=== PATIENT | male | born 1940 | race Caucasian/White ===

== ENCOUNTER 2016-03-17 15:11 | Emergency (ER) | payer OTHER ==
[2016-03-17] VITALS (8 sets, daily range): BP systolic 153–174; BP diastolic 78–96
[~2016-03-17] VITALS: Ht 162.6 cm; Wt 60.6 kg
[~2016-03-17 15:11] MED LIST: LEVAQUIN750 MG PO; MIRTAZAPINE15 MG PO; TYLENOL PM1 CAPLET PO
[2016-03-17 16:17] LABS: HEMATOCRIT 47.1 % (38.0-50.0); MCH 30.5 PG (29.0-34.0); MCHC 33.1 G/DL (30.0-36.0); MCV 92.2 FL (86-99); MEAN PLAT.VOLUME 9.5 uM^3 (9.0-12.4); PLATELET COUNT 197 K/uL (156-360); RBC DIS.WIDTH-CV 14.3 % (11.8-14.6); RBC DIS.WIDTH-SD 46.3 % (39-53); RED BLOOD COUNT 5.11 M/uL (4.00-5.50); WHITE BLOOD COUNT 5.3 K/uL (4.1-10.2)
[2016-03-17 16:28] LABS: CHLORIDE 106 mEq/L (99-109)
[2016-03-17 16:29] LABS: POTASSIUM 4.3 mEq/L (3.7-5.4); SODIUM 141 mEq/L (136-147)
[2016-03-17 16:30] LABS: GLUCOSE 81 mg/dL (70-99)
[2016-03-17 16:32] LABS: ANION GAP 9 MEQ/L (2-14)
[2016-03-17 16:34] LABS: GFR ESTIMATE (CALCULATED) > 59 mL/min/
[2016-03-17 16:35] LABS: UREA NITROGEN (BUN) 26 mg/dL (9-23)
[2016-03-17 16:38] LABS: TROP-I INTERPRETATION NEGATIVE; TROPONIN-I < 0.01 ng/mL (0.0-0.30)
[2016-03-17 18:31] LABS: ADD MIUA? NO; BILIRUBIN NEGATIVE; BLOOD NEGATIVE; COLOR YELLOW ((YELLOW)); GLUCOSE (STRIP) NEGATIVE; KETONES NEGATIVE; LEUKOCYTES NEGATIVE; NITRITE NEGATIVE; PROTEIN (STRIP) NEGATIVE; SPECIFIC GRAVITY 1.025 (1.000-1.030); UCUL ADDED? NO; UROBILINOGEN 0.2 MG/DL (0.2-1.0)
[2016-03-17] MEDS ORDERED: DOXYCYCLINE HY100 MG PO (18:48)
== END 2016-03-17 19:20 | disposition home or self-care (01) ==
LOC: EME 15:11
PROVIDERS: Emergency Medicine
DX: J40 Bronchitis, not specified as acute or chronic (principal); R44.1 Visual hallucinations; R10.9 Unspecified abdominal pain; Z87.891 Personal history of nicotine dependence
CPT/HCPCS: 71020; 80048; 81003; 84484; 85027; 93005; 99281; 99285; J7030

== ENCOUNTER 2016-06-10 17:31 | Inpatient (IN) | payer OTHER ==
[~2016-06-10] VITALS: Ht 172.7 cm; Wt 65.7 kg
[~2016-06-10 17:31] MED LIST changes: +DOXYCYCLINE HY100 MG PO
[2016-06-10 18:21] LABS: HEMATOCRIT 46.3 % (38.0-50.0); MCH 30.9 PG (29.0-34.0); MCV 93.5 FL (86-99); MEAN PLAT.VOLUME 9.2 uM^3 (9.0-12.4); PLATELET COUNT 261 K/uL (156-360); RBC DIS.WIDTH-CV 13.8 % (11.8-14.6); RBC DIS.WIDTH-SD 47.6 % (39-53); RED BLOOD COUNT 4.95 M/uL (4.00-5.50); WHITE BLOOD COUNT 3.6 K/uL (4.1-10.2)
[2016-06-10 18:31] LABS: CHLORIDE 107 mEq/L (99-109); POTASSIUM 4.6 mEq/L (3.7-5.4); SODIUM 138 mEq/L (136-147)
[2016-06-10 18:33] LABS: GLUCOSE 95 mg/dL (70-99)
[2016-06-10 18:34] LABS: ANION GAP 10 MEQ/L (2-14)
[2016-06-10 18:37] LABS: GFR ESTIMATE (CALCULATED) > 59 mL/min/; UREA NITROGEN (BUN) 20 mg/dL (9-23)
[2016-06-10] MEDS ORDERED: NAPROXEN500 MG PO (18:39)
[2016-06-10 18:43] LABS: TROP-I INTERPRETATION NEGATIVE; TROPONIN-I 0.01 ng/mL (0.0-0.30)
[2016-06-10] MEDS ORDERED: CILOSTAZOL50 MG PO (23:35)
[2016-06-10] MEDS ORDERED: MIRTAZAPINE30 MG PO (23:38)
[2016-06-10] MEDS ORDERED: SERTRALINE HCL25 MG PO (23:40)
[2016-06-10] MEDS ORDERED: BREO ELLIPTA I1 EACH IH (23:41)
[2016-06-10] MEDS ORDERED: VITAMIN D22000 UNIT PO (23:41)
[2016-06-10] MEDS ORDERED: BACTRIM,SEPT1 TABLET PO (23:42)
[2016-06-10] MEDS ORDERED: KENALOG,ARISTOC15 GM TP (23:42)
[2016-06-10] MEDS ORDERED: OMEPRAZOLE20 MG PO (23:43)
[2016-06-10] MEDS ORDERED: ADVAIR 250/501 DISK IH (23:43)
[2016-06-10] MEDS ORDERED: PROVENTIL,2.5 MG/3 M IH (23:44)
[2016-06-10] MEDS ORDERED: LEVO-T25 MCG PO (23:44)
[2016-06-11 11:47] VITALS: BP 166/77
[2016-06-11 15:26] VITALS: BP 121/60
[2016-06-11] MEDS ORDERED: MIRTAZAPINE30 MG PO (18:17)
[2016-06-11] MEDS ORDERED: ADVAIR 250/501 DISK IH (18:21)
[2016-06-11] MEDS ORDERED: BACTRIM,SEPT1 TABLET PO (18:24)
[2016-06-11] MEDS ORDERED: KENALOG,ARISTOC15 GM TP (18:25)
[2016-06-11] MEDS ORDERED: SERTRALINE HCL25 MG PO (18:26)
[2016-06-11] MEDS ORDERED: INCRUSE ELLI62.5 MCG IH (18:26)
[2016-06-11] MEDS ORDERED: BREO ELLIPTA I1 EACH IH (18:26)
[2016-06-11 19:47] VITALS: BP 141/63
[2016-06-11 23:44] VITALS: BP 135/63
[2016-06-12 03:20] VITALS: BP 123/62
[2016-06-12 03:45] VITALS: BP 168/79
[2016-06-12 05:44] LABS: HEMATOCRIT 40.9 % (38.0-50.0); MEAN PLAT.VOLUME 9.6 uM^3 (9.0-12.4); PLATELET COUNT 250 K/uL (156-360); RBC DIS.WIDTH-CV 13.9 % (11.8-14.6); RBC DIS.WIDTH-SD 48.5 % (39-53); RED BLOOD COUNT 4.35 M/uL (4.00-5.50)
[2016-06-12 05:49] LABS: WHITE BLOOD COUNT 9.8 K/uL (4.1-10.2)
[2016-06-12 06:02] LABS: ANION GAP 9 MEQ/L (2-14); CHLORIDE 103 MEQ/L (99-109); GFR ESTIMATE (CALCULATED) > 59 mL/min/; SAMPLE HEMOLYSIS CHECK 0; SAMPLE ICTERIC CHECK 0; SAMPLE LIPEMIA CHECK 0; SODIUM 136 MEQ/L (136-147); UREA NITROGEN (BUN) 26 mg/dL (9-23)
[2016-06-12 06:05] LABS: GLUCOSE 119 mg/dL (70-99)
[2016-06-12 09:35] VITALS: BP 131/62
[2016-06-12 19:50] VITALS: BP 143/67
[2016-06-12 23:26] VITALS: BP 127/64
[2016-06-13 02:56] VITALS: BP 139/70
[2016-06-13 09:00] VITALS: BP 122/63
[2016-06-13] MEDS ORDERED: PREDNISONE10 MG PO (13:49)
[2016-06-13] MEDS ORDERED: AUGMENTIN500 MG PO (13:49)
[2016-06-13 17:00] VITALS: BP 158/82
[2016-06-13 20:27] VITALS: BP 138/75
[2016-06-13 23:42] VITALS: BP 153/79
[2016-06-14 03:43] VITALS: BP 114/59
[2016-06-14 05:03] LABS: HEMATOCRIT 43.4 % (38.0-50.0); MCH 30.6 PG (29.0-34.0); MCHC 32.3 G/DL (30.0-36.0); MEAN PLAT.VOLUME 9.3 uM^3 (9.0-12.4); PLATELET COUNT 275 K/uL (156-360); RBC DIS.WIDTH-CV 13.9 % (11.8-14.6); RBC DIS.WIDTH-SD 48.6 % (39-53); RED BLOOD COUNT 4.57 M/uL (4.00-5.50)
[2016-06-14 05:04] LABS: WHITE BLOOD COUNT 6.6 K/uL (4.1-10.2)
[2016-06-14 05:18] LABS: CHLORIDE 104 mEq/L (99-109); POTASSIUM 4.6 mEq/L (3.7-5.4); SODIUM 137 mEq/L (136-147)
[2016-06-14 05:20] LABS: GLUCOSE 118 mg/dL (70-99)
[2016-06-14 05:21] LABS: ANION GAP 6 MEQ/L (2-14)
[2016-06-14 05:24] LABS: GFR ESTIMATE (CALCULATED) > 59 mL/min/; UREA NITROGEN (BUN) 22 mg/dL (9-23)
[2016-06-14 07:13] VITALS: BP 128/76
[2016-06-14 11:25] VITALS: BP 166/86
[2016-06-14 15:53] VITALS: BP 167/71
[2016-06-14 19:38] VITALS: BP 148/72
[2016-06-15 00:02] VITALS: BP 145/72
[2016-06-15 03:39] VITALS: BP 143/80
[2016-06-15 07:59] VITALS: BP 148/72
[2016-06-15 12:05] VITALS: BP 160/77
[2016-06-15 16:30] VITALS: BP 125/62
[2016-06-15 20:49] VITALS: BP 142/71
[2016-06-16 00:05] VITALS: BP 110/57
[2016-06-16 04:25] VITALS: BP 110/55
[2016-06-16 08:01] VITALS: BP 139/75
[2016-06-16] MEDS ORDERED: LEVOFLOXACIN750 MG PO (13:29)
[2016-06-16 15:40] VITALS: BP 157/79
== END 2016-06-16 19:00 | DRG 190 ==
LOC: EME 17:31 → EXP 17:31 → EDOF 06-11 01:38 → 3EAST 06-11 01:38
PROVIDERS: Hospitalist; Physician Assistant
DX: J44.0 Chronic obstructive pulmonary disease with (acute) lower respiratory infection (principal); J18.9 Pneumonia, unspecified organism; J96.11 Chronic respiratory failure with hypoxia; R91.1 Solitary pulmonary nodule; I87.2 Venous insufficiency (chronic) (peripheral); I87.8 Other specified disorders of veins; M19.90 Unspecified osteoarthritis, unspecified site; Z99.81 Dependence on supplemental oxygen; Z87.891 Personal history of nicotine dependence
CPT/HCPCS: 71010; 71020; 71275; 80048; 83605; 84484; 85027; 87040; 87070; 87205; 93005; 94640; 94640 76; 94799; 99202; 99281; 99285; J0456; J0696; J1644; J2930; J7030; J7050; J7512

== ENCOUNTER 2016-10-21 16:10 | Inpatient (IN) | payer OTHER ==
[~2016-10-21] VITALS: Ht 160 cm; Wt 67.3 kg
[~2016-10-21 16:10] MED LIST changes: +ADVAIR 250/501 DISK IH; +AUGMENTIN500 MG PO; +BACTRIM,SEPT1 TABLET PO; +BREO ELLIPTA I1 EACH IH; +CILOSTAZOL50 MG PO; +INCRUSE ELLI62.5 MCG IH; +KENALOG,ARISTOC15 GM TP; +LEVO-T25 MCG PO; +LEVOFLOXACIN750 MG PO; +MIRTAZAPINE30 MG PO; +NAPROXEN500 MG PO; +OMEPRAZOLE20 MG PO; +PREDNISONE10 MG PO; +PROVENTIL,2.5 MG/3 M IH; +SERTRALINE HCL25 MG PO; +VITAMIN D31000 UNIT PO
[2016-10-21 16:54] LABS: BASE EXCESS 2.8 mEq/L (-3 to +3); CARBOXY HGB 2.3 % (0-5); METHEMOGLOBIN 1.2 % (0-1.5); PCO2 49 mm Hg (35-45); PO2 54 mm Hg (80-100); pH 7.38 (7.35-7.45)
[2016-10-21 16:55] LABS: COMMENTS - BLOOD GASES A+C+; DEVICE NC; O2 FLOW 3 L/MIN; SITE RR
[2016-10-21 17:07] LABS: EOSINOPHIL (%) 4.1 % (0-5); EOSINOPHIL COUNT 0.3 K/uL (0-0.3); HEMATOCRIT 44.3 % (38.0-50.0); IMMATURE GRANULOCYTE (%) 0.3 % (0.0-0.7); INSTRUMENT ABS NEUTROPHIL CT 5.6 K/uL; LYMPHOCYTE COUNT 0.9 K/uL (1.0-2.8); MCH 31.3 PG (29.0-34.0); MCV 95.1 FL (86-99); MONOCYTE (%) 6.6 % (3-12); MONOCYTE COUNT 0.5 K/uL (0-0.8); NEUTROPHIL (%) 76.3 % (45-76); NEUTROPHIL COUNT 5.6 K/uL (1.8-6.4); PLATELET COUNT 174 K/uL (156-360); RBC DIS.WIDTH-CV 12.6 % (11.8-14.6); RBC DIS.WIDTH-SD 44.2 % (39-53); RED BLOOD COUNT 4.66 M/uL (4.00-5.50); WHITE BLOOD COUNT 7.3 K/uL (4.1-10.2)
[2016-10-21 17:15] LABS: CHLORIDE 103 mEq/L (99-109); POTASSIUM 4.1 mEq/L (3.7-5.4); SODIUM 139 mEq/L (136-147)
[2016-10-21 17:17] LABS: GLUCOSE 127 mg/dL (70-99)
[2016-10-21 17:18] LABS: ANION GAP 10 MEQ/L (2-14)
[2016-10-21 17:20] LABS: GFR ESTIMATE (CALCULATED) > 59 mL/min/
[2016-10-21 17:21] LABS: UREA NITROGEN (BUN) 15 mg/dL (9-23)
[2016-10-21 17:27] LABS: TROP-I INTERPRETATION NEGATIVE; TROPONIN-I 0.01 ng/mL (0.0-0.30)
[2016-10-21] MEDS ORDERED: AMLODIPINE BESY10 MG PO (20:09)
[2016-10-21] MEDS ORDERED: LOPERAMIDE2 MG PO (20:09)
[2016-10-21] MEDS ORDERED: SENNA8.6 MG PO (20:09)
[2016-10-21 23:15] VITALS: BP 101/51
[2016-10-22 04:48] VITALS: BP 116/55
[2016-10-22 07:46] VITALS: BP 105/56
[2016-10-22 12:29] VITALS: BP 118/62
[2016-10-22 17:28] VITALS: BP 151/70
[2016-10-22 19:22] VITALS: BP 119/58
[2016-10-23] VITALS (7 sets, daily range): BP systolic 111–138; BP diastolic 54–71
[2016-10-24 07:10] VITALS: BP 128/71
[2016-10-24 10:51] VITALS: BP 112/54
[2016-10-24] MEDS ORDERED: PREDNISONE10 MG PO (14:00)
[2016-10-24] MEDS ORDERED: CEFDINIR300 MG PO (14:00)
[2016-10-24 15:59] VITALS: BP 136/65
[2016-10-24 18:13] VITALS: BP 151/72
== END 2016-10-24 19:15 | disposition home health service (06) | DRG 190 ==
LOC: EME 16:10 → EDOF 19:25 → 5EAST 19:25 → ENRESERV 19:33 → 5EAST 20:48
PROVIDERS: Emergency Medicine
DX: J44.0 Chronic obstructive pulmonary disease with (acute) lower respiratory infection (principal); J18.0 Bronchopneumonia, unspecified organism; F33.9 Major depressive disorder, recurrent, unspecified; E03.9 Hypothyroidism, unspecified; J98.4 Other disorders of lung; I10 Essential (primary) hypertension; I73.9 Peripheral vascular disease, unspecified; J44.1 Chronic obstructive pulmonary disease with (acute) exacerbation; M19.90 Unspecified osteoarthritis, unspecified site; R09.02 Hypoxemia; Z99.81 Dependence on supplemental oxygen; Z87.891 Personal history of nicotine dependence
CPT/HCPCS: 36600; 71010; 80048; 82803; 84484; 85025; 94640; 94640 76; 94799; 99202; 99281; 99284; J0456; J0696; J1100; J1644; J2930; J7050; J7512; J7644

== ENCOUNTER 2016-11-15 16:01 | Inpatient (IN) | payer OTHER ==
[~2016-11-15] VITALS: Ht 172.7 cm; Wt 67.0 kg
[~2016-11-15 16:01] MED LIST changes: +AMLODIPINE BESY10 MG PO; +CEFDINIR300 MG PO; +LOPERAMIDE2 MG PO; +SENNA8.6 MG PO
[2016-11-15 17:09] LABS: HEMATOCRIT 42.3 % (38.0-50.0); MCH 30.9 PG (29.0-34.0); MCHC 33.6 G/DL (30.0-36.0); MCV 92.2 FL (86-99); PLATELET COUNT 214 K/uL (156-360); RBC DIS.WIDTH-CV 12.4 % (11.8-14.6); RBC DIS.WIDTH-SD 42.3 % (39-53); RED BLOOD COUNT 4.59 M/uL (4.00-5.50)
[2016-11-15 17:32] LABS: ANION GAP 12 MEQ/L (2-14); CHLORIDE 104 MEQ/L (99-109); POTASSIUM 4.2 MEQ/L (3.7-5.4); SAMPLE HEMOLYSIS CHECK 0; SAMPLE ICTERIC CHECK 0; SAMPLE LIPEMIA CHECK 0; SODIUM 140 MEQ/L (136-147)
[2016-11-15 17:38] LABS: GFR ESTIMATE (CALCULATED) > 59 mL/min/; GLUCOSE 86 mg/dL (70-99); UREA NITROGEN (BUN) 28 mg/dL (9-23)
[2016-11-15 18:32] LABS: TROP-I INTERPRETATION NEGATIVE; TROPONIN-I 0.07 ng/mL (0.0-0.30)
[2016-11-15 20:25] LABS: BASE EXCESS -0.6 mEq/L (-3 to +3); BICARBONATE 23.2 mEq/L (22-26); CARBOXY HGB 2.4 % (0-5); COMMENTS - BLOOD GASES A+C+; DEVICE HHFNC; FI02 80 %; METHEMOGLOBIN 1.4 % (0-1.5); O2 FLOW 45 L/MIN; PCO2 35 mm Hg (35-45); PO2 89 mm Hg (80-100); SITE RR; pH 7.43 (7.35-7.45)
[2016-11-15 23:33] VITALS: BP 128/66
[2016-11-16 04:18] VITALS: BP 120/63
[2016-11-16 05:12] LABS: HEMATOCRIT 39.1 % (38.0-50.0); MCH 30.7 PG (29.0-34.0); MCV 93.1 FL (86-99); MEAN PLAT.VOLUME 9.3 uM^3 (9.0-12.4); PLATELET COUNT 210 K/uL (156-360); RBC DIS.WIDTH-CV 12.5 % (11.8-14.6); WHITE BLOOD COUNT 5.1 K/uL (4.1-10.2)
[2016-11-16 05:44] LABS: ANION GAP 11 MEQ/L (2-14); CHLORIDE 106 MEQ/L (99-109); GFR ESTIMATE (CALCULATED) > 59 mL/min/; GLUCOSE 177 mg/dL (70-99); POTASSIUM 4.2 MEQ/L (3.7-5.4); SAMPLE HEMOLYSIS CHECK 0; SAMPLE ICTERIC CHECK 0; SAMPLE LIPEMIA CHECK 0; SODIUM 142 MEQ/L (136-147); UREA NITROGEN (BUN) 29 mg/dL (9-23)
[2016-11-16 06:19] LABS: ADD MIUA? NO; BILIRUBIN NEGATIVE; BLOOD NEGATIVE; COLOR YELLOW ((YELLOW)); GLUCOSE (STRIP) NEGATIVE; KETONES 20; LEUKOCYTES NEGATIVE; NITRITE NEGATIVE; PROTEIN (STRIP) NEGATIVE; SPECIFIC GRAVITY 1.035 (1.000-1.030); UROBILINOGEN 0.2 MG/DL (0.2-1.0)
[2016-11-16 06:32] LABS: UCUL ADDED? NO
[2016-11-16 07:56] VITALS: BP 132/66
[2016-11-16 12:00] VITALS: BP 121/63
[2016-11-16 15:32] VITALS: BP 125/66
[2016-11-16 21:15] VITALS: BP 122/74
[2016-11-17 04:34] VITALS: BP 125/84
[2016-11-17 05:12] LABS: HEMATOCRIT 37.4 % (38.0-50.0); MCH 30.9 PG (29.0-34.0); MCHC 33.4 G/DL (30.0-36.0); MCV 92.6 FL (86-99); MEAN PLAT.VOLUME 9.3 uM^3 (9.0-12.4); PLATELET COUNT 236 K/uL (156-360); RBC DIS.WIDTH-CV 12.8 % (11.8-14.6); RBC DIS.WIDTH-SD 43.3 % (39-53); RED BLOOD COUNT 4.04 M/uL (4.00-5.50); WHITE BLOOD COUNT 7.9 K/uL (4.1-10.2)
[2016-11-17 07:09] LABS: INTERNAL CONTROL VALID? YES
[2016-11-17 08:00] VITALS: BP 121/68
[2016-11-17 11:20] VITALS: BP 108/74; BP 131/71
[2016-11-17 15:51] VITALS: BP 131/73
[2016-11-17 20:45] VITALS: BP 121/62
[2016-11-18 03:12] VITALS: BP 125/74
[2016-11-18 05:28] LABS: HEMATOCRIT 38.4 % (38.0-50.0); MCH 31.8 PG (29.0-34.0); MCHC 33.6 G/DL (30.0-36.0); MCV 94.6 FL (86-99); MEAN PLAT.VOLUME 9.5 uM^3 (9.0-12.4); PLATELET COUNT 251 K/uL (156-360); RED BLOOD COUNT 4.06 M/uL (4.00-5.50); WHITE BLOOD COUNT 7.5 K/uL (4.1-10.2)
[2016-11-18 07:34] VITALS: BP 138/70
[2016-11-18 11:22] VITALS: BP 122/58
[2016-11-18 15:30] VITALS: BP 132/69
[2016-11-18 20:15] VITALS: BP 135/69
[2016-11-18 23:32] VITALS: BP 137/68
[2016-11-19] VITALS (7 sets, daily range): BP systolic 125–166; BP diastolic 60–96
[2016-11-20 00:06] VITALS: BP 135/72
[2016-11-20 04:48] VITALS: BP 143/94
[2016-11-20 08:28] VITALS: BP 139/68
[2016-11-20 11:32] VITALS: BP 141/80
[2016-11-20 15:19] VITALS: BP 119/69
[2016-11-20 20:53] VITALS: BP 118/65
[2016-11-21 00:04] VITALS: BP 143/81
[2016-11-21 05:42] VITALS: BP 145/71
[2016-11-21 08:09] VITALS: BP 138/73
[2016-11-21 14:53] VITALS: BP 137/83
[2016-11-21 20:06] VITALS: BP 126/65
[2016-11-22] VITALS (7 sets, daily range): BP systolic 129–148; BP diastolic 64–80
[2016-11-22 05:08] LABS: HEMATOCRIT 40.4 % (38.0-50.0); MCH 31.6 PG (29.0-34.0); MCHC 33.2 G/DL (30.0-36.0); MCV 95.3 FL (86-99); MEAN PLAT.VOLUME 9.4 uM^3 (9.0-12.4); PLATELET COUNT 296 K/uL (156-360); RBC DIS.WIDTH-CV 13.2 % (11.8-14.6); RBC DIS.WIDTH-SD 46.8 % (39-53); RED BLOOD COUNT 4.24 M/uL (4.00-5.50); WHITE BLOOD COUNT 9.8 K/uL (4.1-10.2)
[2016-11-22 05:40] LABS: ANION GAP 7 MEQ/L (2-14); CHLORIDE 102 MEQ/L (99-109); GFR ESTIMATE (CALCULATED) > 59 mL/min/; GLUCOSE 124 mg/dL (70-99); POTASSIUM 4.9 MEQ/L (3.7-5.4); SAMPLE HEMOLYSIS CHECK 0; SAMPLE ICTERIC CHECK 0; SAMPLE LIPEMIA CHECK 0; SODIUM 141 MEQ/L (136-147); UREA NITROGEN (BUN) 32 mg/dL (9-23)
[2016-11-23 04:58] VITALS: BP 133/62
[2016-11-23 05:35] LABS: HEMATOCRIT 40.5 % (38.0-50.0); MCHC 33.6 G/DL (30.0-36.0); MCV 95.3 FL (86-99); MEAN PLAT.VOLUME 9.4 uM^3 (9.0-12.4); PLATELET COUNT 293 K/uL (156-360); RBC DIS.WIDTH-CV 13.2 % (11.8-14.6); RBC DIS.WIDTH-SD 45.8 % (39-53); RED BLOOD COUNT 4.25 M/uL (4.00-5.50); WHITE BLOOD COUNT 11.6 K/uL (4.1-10.2)
[2016-11-23 06:02] LABS: ANION GAP 8 MEQ/L (2-14); CHLORIDE 99 MEQ/L (99-109); GFR ESTIMATE (CALCULATED) > 59 mL/min/; GLUCOSE 127 mg/dL (70-99); POTASSIUM 4.7 MEQ/L (3.7-5.4); SAMPLE HEMOLYSIS CHECK 0; SAMPLE ICTERIC CHECK 0; SAMPLE LIPEMIA CHECK 0; SODIUM 138 MEQ/L (136-147); UREA NITROGEN (BUN) 31 mg/dL (9-23)
[2016-11-23 07:43] VITALS: BP 141/99
[2016-11-23 11:20] VITALS: BP 134/68
[2016-11-23 15:57] VITALS: BP 134/72
[2016-11-23 20:19] VITALS: BP 156/75
[2016-11-23 23:29] VITALS: BP 143/72
[2016-11-24 03:38] VITALS: BP 110/58
[2016-11-24 05:46] LABS: HEMATOCRIT 41.8 % (38.0-50.0); MCH 30.8 PG (29.0-34.0); MCHC 32.5 G/DL (30.0-36.0); MCV 94.6 FL (86-99); MEAN PLAT.VOLUME 9.5 uM^3 (9.0-12.4); PLATELET COUNT 297 K/uL (156-360); RBC DIS.WIDTH-SD 45.1 % (39-53); RED BLOOD COUNT 4.42 M/uL (4.00-5.50); WHITE BLOOD COUNT 11.8 K/uL (4.1-10.2)
[2016-11-24 06:26] LABS: ANION GAP 7 MEQ/L (2-14); CHLORIDE 100 MEQ/L (99-109); GFR ESTIMATE (CALCULATED) > 59 mL/min/; GLUCOSE 114 mg/dL (70-99); POTASSIUM 4.6 MEQ/L (3.7-5.4); SAMPLE HEMOLYSIS CHECK 0; SAMPLE ICTERIC CHECK 0; SAMPLE LIPEMIA CHECK 0; SODIUM 138 MEQ/L (136-147); UREA NITROGEN (BUN) 32 mg/dL (9-23)
[2016-11-24 07:00] VITALS: BP 123/70
[2016-11-24 07:01] LABS: BAND NEUTROPHILS 0.9 % (0-8.0); EOSINOPHIL ABS CT 0; INSTRUMENT ABS NEUTROPHIL CT 9.3 K/uL; LYMPHOCYTES 2.6 % (15.0-45.0); METAMYELOCYTES 0.9 %; MYELOCYTES 2.6 %; PLAT.SUFFICIENCY ADEQUATE; SEG.NEUTROPHILS 83.5 % (46.0-76.0); SMUDGE CELLS 0.9
[2016-11-24 11:10] VITALS: BP 145/79
[2016-11-24 15:35] VITALS: BP 144/77
[2016-11-24 20:08] VITALS: BP 128/66
[2016-11-25 00:10] VITALS: BP 118/65
[2016-11-25 04:15] VITALS: BP 117/72
[2016-11-25 05:45] LABS: HEMATOCRIT 42.1 % (38.0-50.0); MCH 30.3 PG (29.0-34.0); MCHC 32.1 G/DL (30.0-36.0); MCV 94.6 FL (86-99); MEAN PLAT.VOLUME 9.4 uM^3 (9.0-12.4); PLATELET COUNT 280 K/uL (156-360); RBC DIS.WIDTH-CV 13.1 % (11.8-14.6); RBC DIS.WIDTH-SD 45.5 % (39-53); RED BLOOD COUNT 4.45 M/uL (4.00-5.50); WHITE BLOOD COUNT 10.5 K/uL (4.1-10.2)
[2016-11-25 06:11] LABS: ANION GAP 6 MEQ/L (2-14); CHLORIDE 101 MEQ/L (99-109); GFR ESTIMATE (CALCULATED) > 59 mL/min/; GLUCOSE 86 mg/dL (70-99); POTASSIUM 4.4 MEQ/L (3.7-5.4); SAMPLE HEMOLYSIS CHECK 0; SAMPLE ICTERIC CHECK 0; SAMPLE LIPEMIA CHECK 0; SODIUM 139 MEQ/L (136-147); UREA NITROGEN (BUN) 29 mg/dL (9-23)
[2016-11-25 06:19] LABS: ABS NEUTROPHIL COUNT 7.4; ATYPICAL LYMPHOCYTE 0.9 %; BAND NEUTROPHILS 3.5 % (0-8.0); EOSINOPHIL ABS CT 0; INSTRUMENT ABS NEUTROPHIL CT 6.8 K/uL; LYMPHOCYTES 11.2 % (15.0-45.0); METAMYELOCYTES 3.4 %; MYELOCYTES 6.9 %; PLAT.SUFFICIENCY ADEQUATE; SEG.NEUTROPHILS 67.2 % (46.0-76.0)
[2016-11-25 08:55] VITALS: BP 126/67
[2016-11-25 11:16] VITALS: BP 145/75
[2016-11-25] MEDS ORDERED: ATIVAN0.5 MG PO (13:42)
[2016-11-25] MEDS ORDERED: MORPHINE CON20 MG/M1 PO (13:42)
[2016-11-25] MEDS ORDERED: BISACODYL5 MG PO (13:43)
[2016-11-25] MEDS ORDERED: GUAIFENESI100 MG/5 M PO (13:43)
[2016-11-25] MEDS ORDERED: PREDNISONE20 MG PO (13:43)
[2016-11-25] MEDS ORDERED: MUCINEX600 MG PO (13:43)
[2016-11-25] MEDS ORDERED: DOCUSATE SODIU100 MG PO (13:43)
[2016-11-25] MEDS ORDERED: CEFDINIR300 MG PO (13:43)
== END 2016-11-25 16:00 | disposition hospice, home (50) | DRG 189 ==
LOC: EME 16:01 → 4EAST 21:02 → EDOF 21:02 → ENRESERV 21:05 → 4EAST 23:22
PROVIDERS: Emergency Medicine; Hospitalist; Internal Medicine
DX: J96.21 Acute and chronic respiratory failure with hypoxia (principal); J18.9 Pneumonia, unspecified organism; J44.1 Chronic obstructive pulmonary disease with (acute) exacerbation; S22.089A Unspecified fracture of T11-T12 vertebra, initial encounter for closed fracture; L97.919 Non-pressure chronic ulcer of unspecified part of right lower leg with unspecified severity; J98.11 Atelectasis; L97.929 Non-pressure chronic ulcer of unspecified part of left lower leg with unspecified severity; J44.0 Chronic obstructive pulmonary disease with (acute) lower respiratory infection; M48.54XA Collapsed vertebra, not elsewhere classified, thoracic region, initial encounter for fracture; M54.5 Low back pain; F32.9 Major depressive disorder, single episode, unspecified; I10 Essential (primary) hypertension; K21.9 Gastro-esophageal reflux disease without esophagitis; I73.9 Peripheral vascular disease, unspecified; M19.90 Unspecified osteoarthritis, unspecified site; M51.16 Intervertebral disc disorders with radiculopathy, lumbar region; I87.2 Venous insufficiency (chronic) (peripheral); R00.0 Tachycardia, unspecified; I83.019 Varicose veins of right lower extremity with ulcer of unspecified site; I83.029 Varicose veins of left lower extremity with ulcer of unspecified site; M48.061 Spinal stenosis, lumbar region without neurogenic claudication; E03.9 Hypothyroidism, unspecified; M54.2 Cervicalgia; Z66 Do not resuscitate; Z75.1 Person awaiting admission to adequate facility elsewhere; Z51.5 Encounter for palliative care; Z82.49 Family history of ischemic heart disease and other diseases of the circulatory system; Z87.891 Personal history of nicotine dependence; Z99.81 Dependence on supplemental oxygen; Y95 Nosocomial condition
CPT/HCPCS: 36600; 71010; 71020; 71275; 72125; 72131; 80048; 81003; 82803; 83880; 84484; 85025; 85027; 87040; 87070; 87205; 87449; 90686; 93005; 94010; 94640; 94640 76; 94667; 94668; 94799; 97530 GO; 97530 GP; 99202; 99281; 99285; J0692; J0696; J1100; J1644; J2930; J3370; J7030; J7040; J7050; J7512

== ENCOUNTER 2016-12-26 12:44 | Inpatient (IN) | payer OTHER ==
[~2016-12-26] VITALS: Ht 170.2 cm; Wt 64.1 kg
[~2016-12-26 12:44] MED LIST changes: +ATIVAN0.5 MG PO; +BISACODYL5 MG PO; +DOCUSATE SODIU100 MG PO; +GUAIFENESI100 MG/5 M PO; +MORPHINE CON20 MG/M1 PO; +MUCINEX600 MG PO; +PREDNISONE20 MG PO
[2016-12-26 12:52] LABS: BASE EXCESS 3.8 mEq/L (-3 to +3); CARBOXY HGB 2.7 % (0-5); METHEMOGLOBIN 1.1 % (0-1.5); PO2 76 mm Hg (80-100)
[2016-12-26 12:53] LABS: BICARBONATE 32.2 mEq/L (22-26); COMMENTS - BLOOD GASES A+C+; DEVICE NRBM; O2 FLOW 15 L/MIN; PCO2 64 mm Hg (35-45); SITE RR; pH 7.31 (7.35-7.45)
[2016-12-26 13:03] LABS: EOSINOPHIL (%) 0.1 % (0-5); HEMATOCRIT 47.1 % (38.0-50.0); IMMATURE GRANULOCYTE (%) 0.8 % (0.0-0.7); IMMATURE GRANULOCYTE COUNT 0.2 K/uL; INSTRUMENT ABS NEUTROPHIL CT 17.9 K/uL; LYMPHOCYTE COUNT 0.4 K/uL (1.0-2.8); MCH 31.2 PG (29.0-34.0); MCHC 32.7 G/DL (30.0-36.0); MCV 95.3 FL (86-99); MEAN PLAT.VOLUME 9.2 uM^3 (9.0-12.4); MONOCYTE (%) 6.7 % (3-12); MONOCYTE COUNT 1.3 K/uL (0-0.8); NEUTROPHIL COUNT 17.9 K/uL (1.8-6.4); PLATELET COUNT 192 K/uL (156-360); RBC DIS.WIDTH-SD 49.4 % (39-53); RED BLOOD COUNT 4.94 M/uL (4.00-5.50); WHITE BLOOD COUNT 19.8 K/uL (4.1-10.2)
[2016-12-26 13:13] LABS: CHLORIDE 105 mEq/L (99-109); SODIUM 143 mEq/L (136-147)
[2016-12-26 13:14] LABS: GLUCOSE 105 mg/dL (70-99)
[2016-12-26 13:16] LABS: ANION GAP 10 MEQ/L (2-14)
[2016-12-26 13:18] LABS: GFR ESTIMATE (CALCULATED) > 59 mL/min/
[2016-12-26 13:19] LABS: UREA NITROGEN (BUN) 22 mg/dL (9-23)
[2016-12-26 13:23] LABS: TROP-I INTERPRETATION NEGATIVE; TROPONIN-I 0.03 ng/mL (0.0-0.30)
[2016-12-26 13:26] LABS: INTER. NORMALIZED RATIO 0.9; PROTHROMBIN TIME 10.7 SEC (10.2-12.9)
[2016-12-26 13:29] LABS: PTT 25.2 SEC (25-37)
[2016-12-26] MEDS ORDERED: COMPAZINE10 MG PO (14:45)
[2016-12-26] MEDS ORDERED: ATIVAN0.5 MG PO (14:46)
[2016-12-26] MEDS ORDERED: ANASPAZ0.125 MG PO (14:47)
[2016-12-26] MEDS ORDERED: HALOPERIDOL2 MG/1 ML PO (14:48)
[2016-12-26] MEDS ORDERED: ACEPHEN650 MG PR (14:49)
[2016-12-26] MEDS ORDERED: ADVIL200 MG PO (14:51)
[2016-12-26] MEDS ORDERED: ACETAMINOPHEN325 M1 PO (14:51)
[2016-12-26] MEDS ORDERED: SENNA8.6 MG PO (14:52)
[2016-12-26] MEDS ORDERED: DULCOLAX5 MG PO (14:54)
[2016-12-26] MEDS ORDERED: ULTRAM50 MG PO (14:55)
[2016-12-26 17:00] VITALS: BP 102/75
[2016-12-26 17:40] LABS: METH RESISTANT S AUREUS PCR NEGATIVE (NEGATIVE)
[2016-12-26 17:47] LABS: PROBE CHECK PASS; SPECIMEN PROCESSING CONTROL PASS
[2016-12-26 19:00] VITALS: BP 117/66
[2016-12-26 19:03] LABS: ADD MIUA? YES; BILIRUBIN NEGATIVE; BLOOD NEGATIVE; COLOR YELLOW ((YELLOW)); GLUCOSE (STRIP) NEGATIVE; KETONES NEGATIVE; LEUKOCYTES NEGATIVE; NITRITE NEGATIVE; PROTEIN (STRIP) NEGATIVE; SPECIFIC GRAVITY 1.015 (1.000-1.030); UROBILINOGEN 0.2 MG/DL (0.2-1.0)
[2016-12-26 19:50] LABS: BACTERIA NONE SEEN /HPF; EPITHELIAL CELLS RARE /HPF; HYALINE CASTS 40-50 /LPF; MUCUS 3+ /LPF; RED BLOOD CELLS 0-5 /HPF (0-5); UCUL ADDED? NO; WHITE BLOOD CELLS 0-5 /HPF (0-5)
[2016-12-26 20:00] VITALS: BP 120/74
[2016-12-26 21:00] VITALS: BP 105/61
[2016-12-26 22:00] VITALS: BP 112/66
[2016-12-26 23:00] VITALS: BP 125/70
[2016-12-27] VITALS (24 sets, daily range): BP systolic 94–149; BP diastolic 47–88
[2016-12-27 05:54] LABS: HEMATOCRIT 37.2 % (38.0-50.0); MCH 31.3 PG (29.0-34.0); MCHC 33.1 G/DL (30.0-36.0); MCV 94.7 FL (86-99); MEAN PLAT.VOLUME 9.3 uM^3 (9.0-12.4); PLATELET COUNT 156 K/uL (156-360); RBC DIS.WIDTH-CV 14.2 % (11.8-14.6); RBC DIS.WIDTH-SD 49.8 % (39-53); WHITE BLOOD COUNT 24.7 K/uL (4.1-10.2)
[2016-12-27 05:57] LABS: RED BLOOD COUNT 3.93 M/uL (4.00-5.50)
[2016-12-27 06:36] LABS: ALKALINE PHOSPHATASE 56 IU/L (3-129); CHLORIDE 104 MEQ/L (99-109); GFR ESTIMATE (CALCULATED) > 59 mL/min/; GLUCOSE 130 mg/dL (70-99); POTASSIUM 4.4 MEQ/L (3.7-5.4); SAMPLE HEMOLYSIS CHECK 0; SAMPLE ICTERIC CHECK 0; SAMPLE LIPEMIA CHECK 0; SODIUM 142 MEQ/L (136-147); TOTAL BILIRUBIN 0.8 MG/DL (0.0-1.0); UREA NITROGEN (BUN) 32 mg/dL (9-23)
[2016-12-27 06:37] LABS: ANION GAP 7 MEQ/L (2-14)
[2016-12-27 08:56] LABS: INTERNAL CONTROL VALID? YES
[2016-12-28] VITALS (24 sets, daily range): BP systolic 93–156; BP diastolic 57–90
[2016-12-28 07:53] LABS: MCH 31.3 PG (29.0-34.0); MCHC 33.1 G/DL (30.0-36.0); MCV 94.3 FL (86-99); MEAN PLAT.VOLUME 9.7 uM^3 (9.0-12.4); PLATELET COUNT 134 K/uL (156-360); RBC DIS.WIDTH-CV 14.6 % (11.8-14.6); RBC DIS.WIDTH-SD 50.4 % (39-53); RED BLOOD COUNT 3.71 M/uL (4.00-5.50); WHITE BLOOD COUNT 21.5 K/uL (4.1-10.2)
[2016-12-28 08:23] LABS: ANION GAP 7 MEQ/L (2-14); CHLORIDE 106 MEQ/L (99-109); GFR ESTIMATE (CALCULATED) > 59 mL/min/; POTASSIUM 4.4 MEQ/L (3.7-5.4); SAMPLE HEMOLYSIS CHECK 0; SAMPLE ICTERIC CHECK 0; SAMPLE LIPEMIA CHECK 0; SODIUM 140 MEQ/L (136-147); UREA NITROGEN (BUN) 24 mg/dL (9-23)
[2016-12-28 08:25] LABS: GLUCOSE 89 mg/dL (70-99)
[2016-12-29] VITALS (22 sets, daily range): BP systolic 117–160; BP diastolic 66–105
[2016-12-29 05:08] LABS: HEMATOCRIT 36.9 % (38.0-50.0); MCH 31.3 PG (29.0-34.0); MCHC 33.6 G/DL (30.0-36.0); MCV 93.2 FL (86-99); MEAN PLAT.VOLUME 9.8 uM^3 (9.0-12.4); PLATELET COUNT 155 K/uL (156-360); RBC DIS.WIDTH-CV 14.3 % (11.8-14.6); RBC DIS.WIDTH-SD 49.1 % (39-53); RED BLOOD COUNT 3.96 M/uL (4.00-5.50); WHITE BLOOD COUNT 17.7 K/uL (4.1-10.2)
[2016-12-29 05:40] LABS: CHLORIDE 107 mEq/L (99-109); POTASSIUM 4.2 mEq/L (3.7-5.4); SODIUM 141 mEq/L (136-147)
[2016-12-29 05:41] LABS: MAGNESIUM 1.7 mg/dL (1.3-2.7)
[2016-12-29 05:43] LABS: GLUCOSE 79 mg/dL (70-99)
[2016-12-29 05:44] LABS: ANION GAP 9 MEQ/L (2-14)
[2016-12-29 05:46] LABS: GFR ESTIMATE (CALCULATED) > 59 mL/min/
[2016-12-29 05:47] LABS: UREA NITROGEN (BUN) 25 mg/dL (9-23)
[2016-12-30] VITALS (14 sets, daily range): BP systolic 110–157; BP diastolic 66–106
[2016-12-31] VITALS (9 sets, daily range): BP systolic 0–132; BP diastolic 0–87
[2016-12-31 09:27] LABS: ALKALINE PHOSPHATASE 78 IU/L (3-129); ANION GAP 7 MEQ/L (2-14); CHLORIDE 106 MEQ/L (99-109); GFR ESTIMATE (CALCULATED) > 59 mL/min/; GLUCOSE 89 mg/dL (70-99); POTASSIUM 3.7 MEQ/L (3.7-5.4); SAMPLE HEMOLYSIS CHECK 0; SAMPLE ICTERIC CHECK 0; SAMPLE LIPEMIA CHECK 0; SODIUM 143 MEQ/L (136-147); UREA NITROGEN (BUN) 20 mg/dL (9-23)
[2016-12-31 09:29] LABS: TOTAL BILIRUBIN 1.1 MG/DL (0.0-1.0)
[2016-12-31 09:49] LABS: HEMATOCRIT 44.9 % (38.0-50.0); MCH 30.5 PG (29.0-34.0); MCHC 32.5 G/DL (30.0-36.0); MCV 93.7 FL (86-99); MEAN PLAT.VOLUME 9.4 uM^3 (9.0-12.4); PLATELET COUNT 175 K/uL (156-360); WHITE BLOOD COUNT 10.3 K/uL (4.1-10.2)
[2016-12-31 10:05] LABS: RED BLOOD COUNT 4.79 M/uL (4.00-5.50)
[2017-01-01] VITALS: BP 132/79
[2017-01-01 04:00] VITALS: BP 99/52
[2017-01-01 05:40] LABS: EOSINOPHIL (%) 0 % (0-5); HEMATOCRIT 39.8 % (38.0-50.0); IMMATURE GRANULOCYTE (%) 1.2 % (0.0-0.7); IMMATURE GRANULOCYTE COUNT 0.1 K/uL; INSTRUMENT ABS NEUTROPHIL CT 8.2 K/uL; LYMPHOCYTE COUNT 0.4 K/uL (1.0-2.8); MCHC 34.2 G/DL (30.0-36.0); MCV 93.6 FL (86-99); MONOCYTE COUNT 0.2 K/uL (0-0.8); NEUTROPHIL (%) 92.5 % (45-76); NEUTROPHIL COUNT 8.2 K/uL (1.8-6.4); PLATELET COUNT 172 K/uL (156-360); RBC DIS.WIDTH-CV 13.7 % (11.8-14.6); RBC DIS.WIDTH-SD 46.6 % (39-53); RED BLOOD COUNT 4.25 M/uL (4.00-5.50); WHITE BLOOD COUNT 8.8 K/uL (4.1-10.2)
[2017-01-01 06:03] LABS: ANION GAP 8 MEQ/L (2-14); CHLORIDE 106 MEQ/L (99-109); GFR ESTIMATE (CALCULATED) > 59 mL/min/; POTASSIUM 4.3 MEQ/L (3.7-5.4); SAMPLE HEMOLYSIS CHECK 0; SAMPLE ICTERIC CHECK 0; SAMPLE LIPEMIA CHECK 0; SODIUM 142 MEQ/L (136-147); UREA NITROGEN (BUN) 24 mg/dL (9-23)
[2017-01-01 06:04] LABS: GLUCOSE 146 mg/dL (70-99)
[2017-01-01 08:00] VITALS: BP 146/79
[2017-01-01 12:00] VITALS: BP 117/77
[2017-01-01 16:00] VITALS: BP 137/80
[2017-01-01 20:00] VITALS: BP 131/79
[2017-01-02] VITALS (7 sets, daily range): BP systolic 110–148; BP diastolic 51–76
[2017-01-02 05:52] LABS: EOSINOPHIL (%) 0 % (0-5); HEMATOCRIT 37.8 % (38.0-50.0); IMMATURE GRANULOCYTE (%) 1.4 % (0.0-0.7); IMMATURE GRANULOCYTE COUNT 0.2 K/uL; INSTRUMENT ABS NEUTROPHIL CT 11.7 K/uL; LYMPHOCYTE COUNT 0.4 K/uL (1.0-2.8); MCH 30.2 PG (29.0-34.0); MCHC 32.5 G/DL (30.0-36.0); MCV 92.9 FL (86-99); MEAN PLAT.VOLUME 9.8 uM^3 (9.0-12.4); MONOCYTE (%) 3.1 % (3-12); MONOCYTE COUNT 0.4 K/uL (0-0.8); NEUTROPHIL (%) 92.2 % (45-76); NEUTROPHIL COUNT 11.7 K/uL (1.8-6.4); PLATELET COUNT 188 K/uL (156-360); RBC DIS.WIDTH-CV 13.8 % (11.8-14.6); RBC DIS.WIDTH-SD 47.4 % (39-53); RED BLOOD COUNT 4.07 M/uL (4.00-5.50); WHITE BLOOD COUNT 12.7 K/uL (4.1-10.2)
[2017-01-02 06:47] LABS: ALKALINE PHOSPHATASE 66 IU/L (3-129); ANION GAP 9 MEQ/L (2-14); CHLORIDE 107 MEQ/L (99-109); GFR ESTIMATE (CALCULATED) > 59 mL/min/; GLUCOSE 135 mg/dL (70-99); POTASSIUM 4.3 MEQ/L (3.7-5.4); SAMPLE HEMOLYSIS CHECK 0; SAMPLE ICTERIC CHECK 0; SAMPLE LIPEMIA CHECK 0; SODIUM 144 MEQ/L (136-147); UREA NITROGEN (BUN) 30 mg/dL (9-23)
[2017-01-02 06:50] LABS: TOTAL BILIRUBIN 0.5 MG/DL (0.0-1.0)
[2017-01-03 03:34] VITALS: BP 120/69
[2017-01-03 06:50] VITALS: BP 126/58
[2017-01-03 07:48] LABS: EOSINOPHIL (%) 0 % (0-5); HEMATOCRIT 38.7 % (38.0-50.0); IMMATURE GRANULOCYTE (%) 1.3 % (0.0-0.7); IMMATURE GRANULOCYTE COUNT 0.1 K/uL; INSTRUMENT ABS NEUTROPHIL CT 6.4 K/uL; LYMPHOCYTE COUNT 0.3 K/uL (1.0-2.8); MCH 30.4 PG (29.0-34.0); MCHC 32.3 G/DL (30.0-36.0); MCV 94.2 FL (86-99); MEAN PLAT.VOLUME 9.7 uM^3 (9.0-12.4); MONOCYTE (%) 4.2 % (3-12); MONOCYTE COUNT 0.3 K/uL (0-0.8); NEUTROPHIL (%) 90.4 % (45-76); NEUTROPHIL COUNT 6.4 K/uL (1.8-6.4); PLATELET COUNT 195 K/uL (156-360); RBC DIS.WIDTH-CV 14.3 % (11.8-14.6); RBC DIS.WIDTH-SD 49.1 % (39-53); RED BLOOD COUNT 4.11 M/uL (4.00-5.50); WHITE BLOOD COUNT 7.1 K/uL (4.1-10.2)
[2017-01-03 08:13] LABS: ALKALINE PHOSPHATASE 67 IU/L (3-129); ANION GAP 7 MEQ/L (2-14); CHLORIDE 106 MEQ/L (99-109); GFR ESTIMATE (CALCULATED) > 59 mL/min/; GLUCOSE 118 mg/dL (70-99); POTASSIUM 4.6 MEQ/L (3.7-5.4); SAMPLE HEMOLYSIS CHECK 0; SAMPLE ICTERIC CHECK 0; SAMPLE LIPEMIA CHECK 0; SODIUM 143 MEQ/L (136-147); TOTAL BILIRUBIN 0.6 MG/DL (0.0-1.0); UREA NITROGEN (BUN) 29 mg/dL (9-23)
[2017-01-03 15:59] VITALS: BP 150/85
[2017-01-03 19:46] VITALS: BP 146/69
[2017-01-03 23:08] VITALS: BP 140/80
[2017-01-04 03:27] VITALS: BP 171/80
[2017-01-04 07:13] VITALS: BP 122/66
[2017-01-04 16:07] VITALS: BP 130/70
[2017-01-05 00:34] VITALS: BP 148/69
[2017-01-05 06:52] VITALS: BP 117/60
[2017-01-05 08:05] LABS: EOSINOPHIL (%) 0.1 % (0-5); HEMATOCRIT 37.4 % (38.0-50.0); IMMATURE GRANULOCYTE (%) 1.4 % (0.0-0.7); IMMATURE GRANULOCYTE COUNT 0.1 K/uL; INSTRUMENT ABS NEUTROPHIL CT 6.7 K/uL; LYMPHOCYTE COUNT 0.6 K/uL (1.0-2.8); MCH 31.4 PG (29.0-34.0); MCHC 33.7 G/DL (30.0-36.0); MCV 93.3 FL (86-99); MEAN PLAT.VOLUME 9.9 uM^3 (9.0-12.4); MONOCYTE (%) 7.4 % (3-12); MONOCYTE COUNT 0.6 K/uL (0-0.8); NEUTROPHIL (%) 83.9 % (45-76); NEUTROPHIL COUNT 6.7 K/uL (1.8-6.4); PLATELET COUNT 199 K/uL (156-360); RBC DIS.WIDTH-CV 14.1 % (11.8-14.6); RBC DIS.WIDTH-SD 48.8 % (39-53); RED BLOOD COUNT 4.01 M/uL (4.00-5.50)
[2017-01-05 08:42] LABS: ANION GAP 5 MEQ/L (2-14); CHLORIDE 101 MEQ/L (99-109); GFR ESTIMATE (CALCULATED) > 59 mL/min/; GLUCOSE 79 mg/dL (70-99); POTASSIUM 4.3 MEQ/L (3.7-5.4); SAMPLE HEMOLYSIS CHECK 0; SAMPLE ICTERIC CHECK 0; SAMPLE LIPEMIA CHECK 0; SODIUM 139 MEQ/L (136-147); UREA NITROGEN (BUN) 23 mg/dL (9-23)
[2017-01-05] MEDS ORDERED: SPIRIVA RESPIMAT4 GM IH (11:22)
[2017-01-05] MEDS ORDERED: PREDNISONE10 MG PO (11:22)
[2017-01-05] MEDS ORDERED: ASPIR-LOW81 MG PO (11:22)
== END 2017-01-05 16:35 | disposition hospice, home (50) | DRG 189 ==
LOC: EME 12:44 → EDOF 14:33 → 4WEST 14:33 → ENRESERV 14:34 → 4WEST 16:19 → ENRESERV 01-02 16:24 → 2EAST 01-02 19:13
PROVIDERS: Emergency Medicine; Hospitalist; Internal Medicine Critical Care Medicine; Specialist
DX: J96.21 Acute and chronic respiratory failure with hypoxia (principal); J15.9 Unspecified bacterial pneumonia; J44.0 Chronic obstructive pulmonary disease with (acute) lower respiratory infection; J44.1 Chronic obstructive pulmonary disease with (acute) exacerbation; E87.2 Acidosis; R33.9 Retention of urine, unspecified; D64.9 Anemia, unspecified; E03.9 Hypothyroidism, unspecified; I10 Essential (primary) hypertension; I48.91 Unspecified atrial fibrillation; I73.9 Peripheral vascular disease, unspecified; I87.2 Venous insufficiency (chronic) (peripheral); K21.9 Gastro-esophageal reflux disease without esophagitis; F32.9 Major depressive disorder, single episode, unspecified; Z66 Do not resuscitate; Z87.891 Personal history of nicotine dependence; Z99.81 Dependence on supplemental oxygen
CPT/HCPCS: 36600; 71010; 74230; 80048; 80053; 81003; 82803; 83605; 83735; 83880; 84100; 84484; 85025; 85027; 85610; 85730; 87040; 87449; 87641; 92526 GN; 92610 GN; 92611 GN; 93005; 93306; 94002; 94003; 94640; 94640 76; 94644; 94760; 94799; 97530 GO; 97530 GP; 99202; 99281; 99285; J0456; J0696; J1100; J1650; J2920; J2930; J7050; J7512; J7644; S0028